=== PATIENT | female | born 1950 | race Caucasian/White ===

== ENCOUNTER 2019-05-08 12:04 | Day surgery (SDC) | payer OTHER ==
[~2019-05-08] VITALS: Ht 157.5 cm; Wt 59.5 kg
[~2019-05-08 12:04] MED LIST: AMIT10TA PO; AMIT25TA PO; BACT800T5 PO; CILO100T PO; FEBU40TA4 PO; INDA25TAB PO; LR 1,000 ML IV ONE; NEXI40CA PO; SULF400T14 PO; [UNRECOGNIZED DRUG - CODE] PO; ceFAZolin SOD 2 GM in IV 1 EA IV ONE
[2019-05-08] MEDS ORDERED: ROCURONIUM BROMIDE 50 MG/5 ML VIAL As Ordered ONE (14:40)
[2019-05-08] MEDS ORDERED: ONDANSETRON 4MG/2ML VIAL (J2405) As Ordered ONE (14:40)
[2019-05-08] MEDS ORDERED: KETOROLAC 60 MG/2 ML VIAL (J1885) As Ordered ONE (14:40)
[2019-05-08] MEDS ORDERED: PROPOFOL 200 MG/20 ML VIAL As Ordered ONE (14:40)
[2019-05-08] MEDS ORDERED: dexameTHASONE 4 MG/ML 1ML VIAL (J1100) As Ordered ONE (14:40)
[2019-05-08] MEDS ORDERED: LIDOCAINE 2% INJ 100 MG/5 ML SDV (FOR ANES.) As Ordered ONE ×2 (14:40→16:42)
[2019-05-08] MEDS ORDERED: fentaNYL 100 MCG/2 ML INJECTION (J3010) As Ordered ONE ×3 (16:42→19:05)
[2019-05-08] MEDS ORDERED: MIDAZOLAM INJ 2 MG/2 ML VIAL (J2250) As Ordered ONE (16:42)
[2019-05-08] MEDS ORDERED: CONRAY-60 60% 50ML VIAL (Q9961) As Ordered ONE ×2 (17:10→17:36)
[2019-05-08] MEDS ORDERED: PERCOCET 5MG/325MG TAB PO PRN ×2 (20:30)
[2019-05-08] MEDS ORDERED: METOCLOPRAMIDE INJ 10MG/2ML VIAL (J2765) IV PRN (20:30)
[2019-05-08] MEDS ORDERED: ONDANSETRON 4MG/2ML VIAL (J2405) IV PRN (20:30)
[2019-05-08] MEDS ORDERED: fentaNYL 100 MCG/2 ML INJECTION (J3010) IV PRN (20:30)
[2019-05-08] MEDS ORDERED: LR 1,000 ML IV SCH (20:30)
[2019-05-08 21:35] VITALS: BP 144/70
--- NOTE | 2019-05-08 23:53 | RO ---
DATE OF PROCEDURE: 05/08/2019 PREPROCEDURE DIAGNOSIS: Bilateral kidney and ureteral stones. POSTPROCEDURE DIAGNOSIS: Bilateral kidney and ureteral stones. PROCEDURE: Cystoscopy, bilateral ureteroscopy with laser lithotripsy and basket extraction of stones, bilateral retrograde pyelograms with intraoperative interpretation of images, right ureteral stent exchange, left ureteral stent placement. SURGEON: Mayo Shaikh MD DIRECTOR TELEVISION NEWS: None. ANESTHESIA: General. OPERATIVE INDICATIONS: This is a 68-year-old female who had a right ureteral stent placed a few weeks ago for obstructing distal right ureteral stones. Also, of note, on the CAT scan, she had left-sided kidney stones measuring up to 3 cm in size, as well as stones in her left ureter measuring up to 1 cm in size. She was brought to the operating room today for treatment of her kidney stones. DESCRIPTION OF PROCEDURE: The patient was brought to the operating room and general anesthesia was induced. Prophylactic antibiotics were infused. She was then placed in the dorsal lithotomy position and prepped and draped in the usual sterile fashion. A rigid cystoscope was inserted into the urethral meatus and advanced into the bladder. Once inside the bladder, guidewire was advanced up the right collecting system alongside the previously placed stent. The right ureteral stent was then grasped and withdrawn intact. I then went up the right collecting system with a short semi-rigid ureteroscope and within the distal ureter, there were several stones seen, each measuring up to 8-9 mm in size. Due to her right ureter being dilated, I was able to grasp all of these stones and remove them with a basket. I then examined the more proximal ureter and no additional stones were seen. A ureteral access sheath was then advanced up into the right collecting system. I then went up the access sheath with a flexible ureteroscope, and of note, the right kidney was severely dilated. No large stones were seen inside the right kidney. There were only very tiny stone fragments. A retrograde pyelogram was then performed and was notable for severe right hydronephrosis, with no extravasation. I then removed the ureteroscope along with the access sheath and no additional stones remained inside the ureter. I utilized the previously placed wire to advance a 7-Lithuanian x 22-32 cm JJ ureteral stent into the right collecting system. The wire was removed, and there were adequate curls of the stent in the right renal pelvis and in the bladder. At this point, I advanced a wire up the left collecting system. I went up the left collecting system with a short semi-rigid ureteroscope, and within the distal ureter, there were three stones seen, each measuring around 1 cm in size. These stones were fragmented into smaller pieces using an Excalibur laser fiber. The stone fragments were then removed from the left ureter with a basket. I then examined the more proximal ureter, and no additional stones were seen within the proximal ureter. At this point, I advanced a ureteral access sheath into the left collecting system. I went up the access sheath with a flexible ureteroscope, and within the left kidney, there were several stones seen measuring up to 3 cm in size. One of these stones was then fragmented into smaller pieces. This stone appeared to measure around 1-1/2 to 2 cm in size. At this point, I used a basket to try to retrieve the majority of any large stone fragments from that stone. Of note, at this point, I had already spent approximately 2-1/2 hours removing the patient's kidney stones. She, of note, still had at least three stones remaining, which were over 1-1/2 to 2 cm in size. Given that it would probably take another 2-1/2 to 3 hours to remove the remainder of the stones, the decision was made to stop at this point with a plan to bring her back for another ureteroscopy in a few weeks to finish the job. This likelihood of this was discussed with the patient preoperatively. At this point, a retrograde pyelogram was performed and was notable for moderate left hydronephrosis with no extravasation. I then withdrew the ureteroscope along with the access sheath and no remaining stones were seen within the ureter. I then utilized the wire to advance a 7-Lithuanian x 22-32 cm JJ ureteral stent into the left collecting system. The wire was removed, and there were adequate curls of the stent in the left renal pelvis and in the bladder. At this point, the bladder was emptied of all fluids, and this marked the conclusion of the procedure. The patient was then taken out of the dorsal lithotomy position, awakened from anesthesia and transported to the recovery room in stable condition. Estimated blood loss: 5 mL. Complications: None. Specimens: Kidney stone fragments. PLAN: The patient will be brought back to the operating room in a few weeks. She does not seem interested in having a percutaneous nephrolithotomy. Therefore, I will bring her back for a left-sided ureteroscopy with laser lithotripsy to clear the remainder of her stone in her left kidney. LEO
--- NOTE | 2019-05-09 07:34 | REP ---
C-ARM VIEWS DURING URETERAL STENT PLACEMENT BILATERALLY: Four C-arm views are performed. Contrast material is injected partially opacifying bilateral pelvocaliceal systems. Right Pelvocaliceal system appear moderately dilated. There are multiple left renal calculi are again seen. These were present on the prior exam of 03/18/2019. There are bilateral ureteral stents placed. The proximal end of each stent is in the renal pelvis in the distal ends in the urinary bladder. 27 seconds of fluoroscopy time utilized. Electronically Signed by Luis Armando Liu MD 05/09/2019 12:54 P
== END 2019-05-08 21:54 | disposition home or self-care (01) ==
LOC: M SDC 12:04
PROVIDERS: ATTEND Urology
DX: N20.0 Calculus of kidney (principal); N20.1 Calculus of ureter; E78.5 Hyperlipidemia, unspecified; K21.9 Gastro-esophageal reflux disease without esophagitis; I73.00 Raynaud's syndrome without gangrene; F17.218 Nicotine dependence, cigarettes, with other nicotine-induced disorders; Z88.2 Allergy status to sulfonamides; Z88.8 Allergy status to other drugs, medicaments and biological substances; Z79.899 Other long term (current) drug therapy
CPT/HCPCS: 52356; 74420; 82360; 88300; C1769; C1894; J0690; J1100; J2250; J2405; J3010; Q9961

== ENCOUNTER 2019-06-05 10:36 | Day surgery (SDC) | payer OTHER ==
[~2019-06-05] VITALS: Ht 157.5 cm; Wt 58.4 kg
[~2019-06-05 10:36] MED LIST changes: +FLOM0.4C39 PO; +LIDOCAINE 2% INJ 100 MG/5 ML SDV (FOR ANES.) As Ordered ONE; +MIDAZOLAM INJ 2 MG/2 ML VIAL (J2250) As Ordered ONE; +ONDANSETRON 4MG/2ML VIAL (J2405) As Ordered ONE; +dexameTHASONE 4 MG/ML 1ML VIAL (J1100) As Ordered ONE; +fentaNYL 100 MCG/2 ML INJECTION (J3010) As Ordered ONE; +propofoL 200 MG/20 ML VIAL As Ordered ONE
[2019-06-05] MEDS ORDERED: OXYB5TAB10 PO (11:01)
[2019-06-05] MEDS ORDERED: CONRAY-60 60% 50ML VIAL (Q9961) As Ordered ONE (13:10)
[2019-06-05] MEDS ORDERED: dexameTHASONE 4 MG/ML 1ML VIAL (J1100) As Ordered ONE (13:45)
[2019-06-05] MEDS ORDERED: METOCLOPRAMIDE INJ 10MG/2ML VIAL (J2765) As Ordered ONE (14:18)
[2019-06-05] MEDS ORDERED: PHENYLephrine HCL 500 MCG/5 ML (100MCG/ML) SYRINGE (J2370) As Ordered ONE (14:20)
[2019-06-05] MEDS ORDERED: fentaNYL 100 MCG/2 ML INJECTION (J3010) As Ordered ONE (14:38)
[2019-06-05] MEDS ORDERED: SEVOFLURANE INHAL SOLN 250 ML BTL As Ordered ONE (14:42)
[2019-06-05] MEDS ORDERED: ACETAMINOPHEN 1000MG 100ML IV BTL (OFIRMEV) (J0131 PER 10MG) As Ordered ONE (14:47)
[2019-06-05] MEDS ORDERED: ESMOLOL INJ 100MG/10ML VIAL As Ordered ONE (15:11)
--- NOTE | 2019-06-05 16:18 | RO ---
DATE OF PROCEDURE: 06/05/2019 PREPROCEDURE DIAGNOSIS: Kidney stones. POSTPROCEDURE DIAGNOSIS: Kidney stones. PROCEDURE: Cystoscopy, left ureteroscopy with laser lithotripsy and basket extraction of stones, left retrograde pyelogram with intraoperative interpretation of images, left ureteral stent exchange, right ureteral stent removal. SURGEON: Dr. Mayo Shaikh HEALTH AND SOCIAL CARE TEACHER: None. ANESTHESIA: General. OPERATIVE INDICATIONS: This is a 68-year-old female who was originally found to have kidney and ureteral stones approximately 1-2 months ago. She was brought to the operating room a few weeks ago for treatment of stones and at that time the stones on the right side were cleared out. She is brought to the operating room today to treat the remainder of the stones on the left and remove the right ureteral stent. DESCRIPTION OF PROCEDURE: The patient was brought to the operating room and general anesthesia was induced. Prophylactic antibiotics were infused. She was then placed in dorsal lithotomy position, prepped and draped in the usual sterile fashion. At this point, a fluoroscopic image was obtained and it confirms there were no residual stones on the right side. There were still several large stones inside the left kidney. At this point, a rigid cystoscope was inserted into the urethral meatus and advanced to the bladder. The right ureteral stent was then grasped and removed from the bladder intact. At this point, I advanced the guidewire up the left collecting system and then removed the left ureteral stent. I advanced the ureteral access sheath over the wire and into the left collecting system. I went up the access sheath with a flexible ureteroscope and of note in the left kidney there were at least four stones seen that were over a centimeter in size. At this point, an Excalibur laser fiber was utilized to fragment the stones into the smaller pieces. A lot of the stone fragments were removed with a basket. Any remaining stones inside the left kidney were broken down into dust so the patient should be able to pass through. Once satisfied that there were only very tiny stone fragments remaining, a left retrograde pyelogram was performed. It was notable for moderate left hydronephrosis. There was no extravasation. I then withdrew the ureteroscope along with access sheath and no additional stones were seen within the ureter. I then utilized the wire to advance a 7-Bulgarian x 22 cm black silicone stent into the left collecting system. The wire was removed and there were adequate curls of the stent in the left renal pelvis and in the bladder. The bladder was emptied of all fluids and this marked the conclusion of the procedure. The patient was then taken out of the dorsal lithotomy position, awakened from anesthesia and transported to the recovery room in stable condition. Estimated blood loss: 5 mL. Complications: None. Specimens: Kidney stone fragments. Plan: The patient will followup in the clinic in approximately 3-4 weeks for stent removal. I will get a KUB prior to removing the stent to ensure that there were no residual fragments inside the ureter. MTDD
[2019-06-05] MEDS ORDERED: PERCOCET 5MG/325MG TAB PO PRN (16:45)
[2019-06-05] MEDS ORDERED: LR 1,000 ML IV SCH (16:45)
[2019-06-05] MEDS ORDERED: HYDROMORPHONE HCL 0.5 MG/ 0.5 ML SYRINGE (J1170 PER 1) IV PRN (16:45)
[2019-06-05] MEDS ORDERED: oxyCODONE 5MG TAB PO PRN (16:45)
[2019-06-05] MEDS ORDERED: fentaNYL 100 MCG/2 ML INJECTION (J3010) IV PRN (16:45)
[2019-06-05] MEDS ORDERED: ONDANSETRON 4MG/2ML VIAL (J2405) IV PRN (16:45)
--- NOTE | 2019-06-05 17:29 | REP ---
Retrograde pyelogram: Three views. History: Cystoscopy. 41 seconds of fluoroscopy time is reported. Findings: A sequence of three last image hold fluoroscopically obtained spot radiographs of the abdomen document ureteral cannulation, contrast injection, and stenting. This appears to be left-sided. No laterality markers are visible. Electronically Signed by Adams Cano MD 06/05/2019 06:11 P
[2019-06-05 17:55] VITALS: BP 109/59
== END 2019-06-05 18:00 | disposition home or self-care (01) ==
LOC: M SDC 10:36
PROVIDERS: ATTEND Urology
DX: N20.0 Calculus of kidney (principal); E78.5 Hyperlipidemia, unspecified; K21.9 Gastro-esophageal reflux disease without esophagitis; D64.9 Anemia, unspecified; Z88.2 Allergy status to sulfonamides; Z88.8 Allergy status to other drugs, medicaments and biological substances; F17.218 Nicotine dependence, cigarettes, with other nicotine-induced disorders
CPT/HCPCS: 52356; 74420; 82360; 88300; C1769; C1894; C2617; J0131; J0690; J1100; J2250; J2370; J2405; J2765; J3010; Q9961

== ENCOUNTER → 2020-01-04 | Outpatient (REF) | payer OTHER ==
[~2020-01-04] MED LIST changes: -LIDOCAINE 2% INJ 100 MG/5 ML SDV (FOR ANES.) As Ordered ONE; -LR 1,000 ML IV ONE; -MIDAZOLAM INJ 2 MG/2 ML VIAL (J2250) As Ordered ONE; -ONDANSETRON 4MG/2ML VIAL (J2405) As Ordered ONE; +OXYB5TAB10 PO; -ceFAZolin SOD 2 GM in IV 1 EA IV ONE; -dexameTHASONE 4 MG/ML 1ML VIAL (J1100) As Ordered ONE; -fentaNYL 100 MCG/2 ML INJECTION (J3010) As Ordered ONE; -propofoL 200 MG/20 ML VIAL As Ordered ONE
[2020-01-04 17:15] LABS: APPEARANCE, URINE CLEAR (CLEAR); BACTERIA, URINE AUTO 1+ (NEGATIVE); BILIRUBIN, URINE AUTO NEGATIVE (NEGATIVE); BLOOD, URINE BLOOD NEGATIVE (NEGATIVE); COLOR, URINE STRAW (YELLOW); GLUCOSE, URINE (UA) AUTO NEGATIVE (NEGATIVE); KETONE, URINE AUTO NEGATIVE (NEGATIVE); LEUKOCYTE ESTERASE, URINE AUTO 2+ (NEGATIVE); MUCUS, URINE SMALL (NEGATIVE); NITRITE, URINE AUTO NEGATIVE (NEGATIVE); PROTEIN, URINE AUTO NEGATIVE (NEGATIVE); RBC, URINE AUTO 1 /HPF (0-3); SPECIFIC GRAVITY URINE AUTO 1.005 (1.002-1.035); SQUAMOUS EPITHELIAL CELL UR AU 2 /HPF (0-6); UROBILINOGEN, URINE AUTO 0.2 mg/dL (0.0-2.0); WBC, URINE AUTO 19 /HPF (0-3)
== END ==
LOC: M SMT 16:54
PROVIDERS: ATTEND Nurse Practitioner Family
DX: N20.0 Calculus of kidney (principal)

== ENCOUNTER → 2020-01-04 | Outpatient (CLI) | payer OTHER ==
--- NOTE | 2020-01-30 15:08 | REPPI ---
ABDOMINAL RADIOGRAPH: CLINICAL: Kidney stones. TECHNIQUE: Single supine view of the abdomen and pelvis. FINDINGS: Multiple bilateral intrarenal calculi are suggested (left greater than right). Further evaluation is limited due to overlying bowel gas and constipation. Skeletal structures demonstrate age related degenerative changes. IMPRESSION: Bilateral intrarenal calculi (left greater than right) suggested. MTDD
== END ==
LOC: M PLAIMG 15:22
PROVIDERS: ATTEND Nurse Practitioner Family
DX: N20.0 Calculus of kidney (principal)

== ENCOUNTER 2020-07-14 05:47 | Observation (INO) | payer OTHER ==
[~2020-07-14 05:47] MED LIST changes: -AMIT10TA PO; +AMIT10TA7 PO; -AMIT25TA PO; +AMIT25TA17 PO
[2020-07-14 08:40] VITALS: BP 98/60
[2020-07-14] MEDS ORDERED: ACETAMINOPHEN TAB 650MG DOSE (2X325MG) PO PRN (09:00)
--- NOTE | 2020-07-14 09:53 | REP ---
INDICATION: Pre-Op COMPARISON: None. TECHNIQUE: Portable AP view of the chest FINDINGS: The mediastinum and cardiac silhouette are within normal limits for portable technique. The lung gar are clear without acute consolidation, effusion, or pneumothorax. Skeletal structures are intact. IMPRESSION: No acute cardiopulmonary process appreciated. <Electronically signed by Igor Thomas > 07/14/20 0949
[2020-07-14] MEDS ORDERED: NS 1,000 ML IV SCH (10:00)
[2020-07-14] MEDS ORDERED: cefTRIAXone SOD 1 GM in D5W MINI-BAG PLUS 50 ML IV SCH (10:00)
[2020-07-14 10:02] LABS: BASO # 0.1 10^3/uL (0.0-0.2); BASO % 0.6 % (0.0-1.0); EOS # 0.3 10^3/uL (0.0-0.5); EOS % 3.1 % (0.0-3.0); HEMOGLOBIN 13.2 g/dl (12.0-15.5); LYMPH # 1.9 10^3/uL (1.5-5.0); LYMPH % 19.3 % (24.0-44.0); MEAN CORPUSCULAR HEMOGLOBIN 33.2 pg (27.0-33.0); MEAN CORPUSCULAR HGB CONC 33.8 g/dl (32.0-36.5); MONO # 0.7 10^3/uL (0.0-0.8); MONO % 6.7 % (2.0-8.0); NEUTROPHILS # 6.9 10^3/uL (1.5-8.5); NEUTROPHILS % 69.9 % (36.0-66.0); PLATELET COUNT, AUTOMATED 152 10^3/uL (150-450); RED BLOOD COUNT 3.98 10^6/uL (4.00-5.40); WHITE BLOOD COUNT 9.9 10^3/uL (4.0-10.0)
--- NOTE | 2020-07-14 10:03 | SMCUROLCON ---
Urology Consultation General Date of Consultation 07/14/20 Reason For Consultation This patient is seen for Severe Hydronephrosis,Nephrolitiasis. History of Present Illness The patient is a [69]-year-old [woman] with a past medical history for [kidney stones] who went to her local ER with right flank pain. She was found to have a 1 cm stone obstructing her right ureter and smaller stones bilaterally. She has a 32 year h/o kidney stones treated with a variety of procedures through the years. At [facility], she denies any fever or chills but had more pain than she could tolerate. . Medications Current Medications Current Medications Medications (Trade) Dose Ordered Sig/Jordan Route PRN Reason Start Time Stop Time Status Last Admin Dose Admin Acetaminophen (Tylenol Tab) 650 mg Q4H PRN PO PAIN OR FEVER 07/14/20 09:00 Ceftriaxone Sodium 1 gm/ Dextrose 50 ml @ 100 mls/hr Q24H IV 07/14/20 10:00 Cancel Ceftriaxone Sodium 1 gm/ Dextrose 50 ml @ 100 mls/hr Q24H IV 07/15/20 05:00 Sodium Chloride 1,000 ml @ 100 mls/hr Q10H IV 07/14/20 10:00 07/14/20 09:32 Allergies Allergies: Coded Allergies: Giashcx-Lgn-Lho Reductase Inhibitor (Verified Allergy, Severe, 05/31/19) Sulfa (Sulfonamide Antibiotics) (Verified Allergy, Severe, 05/31/19) albuterol (Verified Adverse Reaction, Mild, tremors, 05/31/19) sulfamethoxazole (Verified Adverse Reaction, Unknown, LETHARGY, 05/31/19) trimethoprim (Verified Adverse Reaction, Unknown, LETHARGY, 05/31/19) Physical Examination Chest Exam: Clear to auscultation Heart Exam: Rate Normal, Regular Rhythm Abdomen Exam: Normal Bowel Sounds, Soft, Other (mild right sided tenderness without surgical signs; no CVAT) Extremity Exam: Clubbing, Cyanosis (no palpable cords, clubbing or edema.) Vital Signs/I&O Vital Signs Date Time Temp Pulse Resp B/P (MAP) Pulse Ox O2 Delivery O2 Flow Rate FiO2 07/14/20 08:40 96.9 85 16 98/60 (73) 92 Room Air Laboratory Data 24H Labs Laboratory Tests 2 07/14/20 08:40: 07/14/20 09:13: Urine Color YELLOW, Urine Appearance CLOUDYH, Urine pH 6.0, Urine Specific Fowler 1.012, Urine Protein 1+H, Urine Glucose (UA) NEGATIVE, Urine Ketones NEGATIVE, Urine Blood 2+H, Urine Nitrite NEGATIVE, Urine Bilirubin NEGATIVE, Urine Urobilinogen 0.2, Urine Leukocyte Esterase 3+H, Urine WBC (Auto) TNTCH, Urine RBC (Auto) 102H, Urine Hyaline Casts (Auto) 0, Urine Bacteria (Auto) 1+H, Urine Squamous Epithelial Cells 4, Urine Mucus (Auto) SMALL, Urine Sperm (Auto) 07/14/20 09:45: CBC/BMP Microbiology Microbiology 07/14/20 Blood Culture, Received Pending 07/14/20 Urine Culture, Received Pending Assessment Right ureteral obstruction due to large right mid ureteral stone Plan I plan of decompression in the OR today with stent placement. Risks of this have been discussed with her and she completely understands. SERA METZ MD Jul 14, 2020 10:03
[2020-07-14 10:11] LABS: INR 0.99; PROTHROMBIN TIME 13.3 SECONDS (12.5-14.3)
[2020-07-14 10:32] LABS: ALBUMIN 3.2 GM/DL (3.2-5.2); BILIRUBIN,TOTAL 0.4 MG/DL (0.2-1.0); CALCIUM LEVEL 8.5 MG/DL (8.8-10.2); CREATININE FOR GFR 1.17 MG/DL (0.55-1.30); GLOMERULAR FILTRATION RATE 48.5 (>39); POTASSIUM SERUM 3.4 MEQ/L (3.5-5.1); TOTAL PROTEIN 5.9 GM/DL (6.4-8.2)
[2020-07-14] MEDS ORDERED: POTASOL PO (10:48)
[2020-07-14] MEDS ORDERED: POTASSIUM CHLORIDE 10 MEQ SR TABLET PO ONE ×2 (11:20→15:00)
[2020-07-14] MEDS ORDERED: CONRAY-60 60% 50ML VIAL (Q9961) As Ordered ONE (11:38)
[2020-07-14] MEDS ORDERED: LIDOCAINE 2% 100MG/5ML SDV (FOR ANES.) As Ordered ONE (11:45)
[2020-07-14] MEDS ORDERED: propofoL 200 MG/20 ML VIAL As Ordered ONE (11:45)
[2020-07-14] MEDS ORDERED: fentaNYL 100 MCG/2 ML INJECTION (J3010) As Ordered ONE (11:46)
[2020-07-14] MEDS ORDERED: dexameTHASONE 4 MG/ML 1ML VIAL (J1100 PER 1MG) As Ordered ONE (11:46)
[2020-07-14] MEDS ORDERED: MIDAZOLAM INJ 2MG/2ML VIAL (J2250 PER 1MG) As Ordered ONE (11:46)
[2020-07-14] MEDS ORDERED: ONDANSETRON 4MG/2ML VIAL As Ordered ONE (11:46)
[2020-07-14 12:00] VITALS: BP 106/49
[2020-07-14] MEDS ORDERED: VASOPRESSIN INJ 20 UNITS/ML VIAL As Ordered ONE (12:28)
[2020-07-14] MEDS ORDERED: PHENYLephrine 500MCG 5ML (100MCG/ML) SYRINGE As Ordered ONE (12:31)
[2020-07-14] MEDS ORDERED: ePHEDrine SULFATE 25 MG/5 ML(5MG/ML) SYRINGE As Ordered ONE (12:31)
[2020-07-14] MEDS ORDERED: fentaNYL 100 MCG/2 ML INJECTION (J3010) IV PRN (12:55)
[2020-07-14] MEDS ORDERED: METOCLOPRAMIDE INJ 10MG/2ML VIAL (J2765 PER 1) IV PRN (12:55)
[2020-07-14] MEDS ORDERED: PERCOCET 5MG/325MG TAB PO PRN (12:55)
[2020-07-14] MEDS ORDERED: LR 1,000 ML IV SCH (12:55)
[2020-07-14] MEDS ORDERED: ONDANSETRON 4MG/2ML VIAL IV PRN (12:55)
--- NOTE | 2020-07-14 13:00 | REP ---
INDICATION: CYSTOSCOPY, RIGHT RETROGRADE, RIGHT STENT PLACEMENT. COMPARISON: None. TECHNIQUE: Intraoperative fluoroscopic imaging. FINDINGS: Images demonstrate the patient to be status post right ureteral stent placement. Total fluoroscopic time 13 seconds. IMPRESSION: Status post right ureteral stent placement. <Electronically signed by Igor Thomas > 07/14/20 [id number]
--- NOTE | 2020-07-14 13:06 | ECGEPIP ---
[facility] Test Date: 2020-07-14 Pat Name: EVERETTE KENDRICK Department: Room: [place] [address] Gender: Female Instruction Librarian: LINNETTE : 1950 Requested By: TERE CASTANON Order Number: [id number] Reading MD: Blossom Aly Measurements Intervals [place] Rate: 79 P: 37 AK: 150 QRS: -4 QRSD: 86 T: 63 QT: 364 QTc: 417 Interpretive Statements Normal sinus rhythm LOW VOLTAGE LIMB LEADS NO PRIOR Electronically Signed on 07-14-2020 13:06:31 EDT by Blossom Aly
--- NOTE | 2020-07-14 13:08 | HPEPDOC ---
[facility] Medical History & Physical Date of Admission Jul 14, 2020 Date of Service: Jul 14, 2020 History and Physical Chief complaint: Who presented to [facility] as a transfer from [facility] for right ureteral obstructing stone History of present illness: She is a 69-year-old female who presented from [facility] because of an obstructive stone in her right ureter. Patient reported that at 4PM on Wednesday, she was experiencing right-sided kidney pain that spread down to her bladder. Patient reported that the pain currently is a 1/10. However, at its peak was a 10/10. Patient describes it as a sharp stabbing pain without any alleviating or aggravating factors. She denies any burning with urination. Denies any recent fevers or chills. Patient denies any nausea, vomiting, chest pain, shortness breath, palpitations, cough. Denies any other abdominal pain. Reports her appetite before this was generally fine. Patient reports her last meal was yesterday at 9:30 PM. Patient has received a COVID19 vaccine, first dose on 06/29. She is scheduled for her next dose on Wednesday, 07/20. 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 Raynaud Depression DLP Past Surgical History: Right ovarian resection, bladder suspension surgery, appendectomy, and right inguinal hernia repair simultaneously Allergies: See below Medications: See below Family History: - Mother with history of lung cancer Social History: - Denies the use of alcohol, tobacco or illicit drugs - Denies recent travel or sick contacts - Lives with - Occupation Review of Systems: 10 point review of systems complete, all negative otherwise stated in HPI Physical exam: - Vitals: BP [98/60], HR [85], RR [16], Sat [92%RA], Temp [96.9F] - General: Lying in bed, Speaking in full sentences, AAOx3 - HEENT: NC, AT, PERRLA - CVS: RRR, +S1S2 - Lungs: Fair air entry bilaterally, No appreciable wheezing / rales / rhonchi - Abdomen: Soft, Non-distended, some suprapubic tenderness. Right CVA tenderness - Extremities: No lower extremity edema, No calf tenderness - Neuro: No focal motor or sensory deficit - Skin: No visible rashes Labs: See below Imaging: See below EKG: See below Assessment and Plan: R obstructive ureteral stone with hydronephrosis - Presented to [facility] as a transfer from [facility] - Has been complaining of right flank pain since Wednesday evening - Currently does not appear to have any signs of infection - Hemodynamically stable and afebrile - No leukocytosis, no renal function abnormalities - Discussed with and consulted urology will be taken to or today for stenting - Patient will remain nothing by mouth status - Will continue with IV fluid hydration and ceftriaxone Hypokalemia - Will supplement HTN - BP well controlled currently - Will hold Indapamide Gout - c/w Febuxostat Depression - c/w Amitriptyline GERD - Will c/w PPI DVT prophylaxis - Will start TEDs/Sequentials Vital Signs Vital Signs Date Time Temp Pulse Resp B/P (MAP) Pulse Ox O2 Delivery O2 Flow Rate FiO2 07/14/20 12:59 84 16 103/55 (71) 100 Non-Rebreather 10 07/14/20 12:39 97 Laboratory Data Labs 24H Laboratory Tests 2 07/14/20 08:40: Coronavirus (COVID-19)(PCR) NEGATIVE 07/14/20 09:13: Urine Color YELLOW, Urine Appearance CLOUDYH, Urine pH 6.0, Urine Specific [place] 1.012, Urine Protein 1+H, Urine Glucose (UA) NEGATIVE, Urine Ketones NEGATIVE, Urine Blood 2+H, Urine Nitrite NEGATIVE, Urine Bilirubin NEGATIVE, Urine Urobilinogen 0.2, Urine Leukocyte Esterase 3+H, Urine WBC (Auto) TNTCH, Ur ine RBC (Auto) 102H, Urine Hyaline Casts (Auto) 0, Urine Bacteria (Auto) 1+H, Urine Squamous Epithelial Cells 4, Urine Mucus (Auto) SMALL, Urine Sperm (Auto) , Methicillin-Resist S.aureus DNA PCR NOT DETECTED 07/14/20 09:45: Immature Granulocyte % (Auto) 0.4, Neutrophils (%) (Auto) 69.9H, Lymphocytes (%) (Auto) 19.3L, Monocytes (%) (Auto) 6.7, Eosinophils (%) (Auto) 3.1H, Basophils (%) (Auto) 0.6, Neutrophils # (Auto) 6.9, Lymphocytes # (Auto) 1.9, Monocytes # (Auto) 0.7, Eosinophils # (Auto) 0.3, Basophils # (Auto) 0.1, Nucleated Red Blood Cells % (auto) 0.0, Prothrombin Time 13.3, Prothromb Time International Ratio 0.99, Anion Gap 4L, Glomerular Filtration Rate 48.5, Lactic Acid Level 2.0, Calcium Level 8.5L, Total Bilirubin 0.4, Aspartate Amino Transf (AST/SGOT) 15, Alanine Aminotransferase (ALT/SGPT) 22, Alkaline Phosphatase 97, Total Protein 5.9L, Albumin 3.2, Albumin/Globulin Ratio 1.2, Procalcitonin 0.07 CBC/BMP Laboratory Tests 07/14/20 09:45 Microbiology Microbiology 07/14/20 Blood Culture, Received Pending 07/14/20 Blood Culture, Received Pending 07/14/20 Urine Culture, Received Pending Home Medications Scheduled Amitriptyline HCl (Amitriptyline HCl) 10 Mg Tablet, 10 MG PO QHS Amitriptyline HCl (Amitriptyline HCl) 25 Mg Tablet, 25 MG PO QHS Esomeprazole Magnesium (Nexium) 40 Mg Capsule.dr, 40 MG PO BID Febuxostat (Uloric) 40 Mg Tablet, 40 MG PO DAILY Indapamide (Indapamide) 2.5 Mg Tablet, 2.5 MG PO DAILY Potassium Citrate/Citric Acid (Potassium Cit-Citric Acid Soln) 473 Ml Solution, 5 ML PO TID Allergies Coded Allergies: Gmnclbl-Nlz-Xzu Reductase Inhibitor (Verified Allergy, Severe, 05/31/19) Sulfa (Sulfonamide Antibiotics) (Verified Allergy, Severe, 05/31/19) albuterol (Verified Adverse Reaction, Mild, tremors, 05/31/19) sulfamethoxazole (Verified Adverse Reaction, Unknown, LETHARGY, 05/31/19) trimethoprim (Verified Adverse Reaction, Unknown, LETHARGY, 05/31/19) TERE CASTANON MD Jul 14, 2020 13:08
[2020-07-14 13:45] VITALS: BP 99/46
[2020-07-14 14:15] VITALS: BP 90/51
[2020-07-14] MEDS ORDERED: INDA25TAB PO (14:36)
[2020-07-14] MEDS ORDERED: LEVO250T12 PO (14:36)
--- NOTE | 2020-07-14 15:33 | DS.PDOC ---
Discharge Summary General Date of Admission Jul 14, 2020 at 08:40 Date of Discharge 07/14/2020 Discharge Summary PROCEDURES PERFORMED DURING STAY: R sided ureteral stent placement with Dr. Garcia on 07/13/2020 ADMITTING DIAGNOSES / DISCHARGE DIAGNOSES: R obstructive ureteral stone with hydronephrosis Hypokalemia HTN Gout Depression GERD DVT prophylaxis COMPLICATIONS/CHIEF COMPLAINT: Nephrolithiasis HISTORY OF PRESENT ILLNESS: She is a 69-year-old female who presented from [facility] because of an obstructive stone in her right ureter. Patient reported that at 4PM on Wednesday, she was experiencing right-sided kidney pain that spread down to her bladder. Patient reported that the pain currently is a 1/10. However, at its peak was a 10/10. Patient describes it as a sharp stabbing pain without any alleviating or aggravating factors. She denies any burning with urination. Denies any recent fevers or chills. Patient denies any nausea, vomiting, chest pain, shortness breath, palpitations, cough. Denies any other abdominal pain. Reports her appetite before this was generally fine. Patient reports her last meal was yesterday at 9:30 PM. Patient has received a COVID19 vaccine, first dose on 06/29. She is scheduled for her next dose on Wednesday, 07/20. HOSPITAL COURSE: R obstructive ureteral stone with hydronephrosis - Presented to [facility] as a transfer from [facility] - Currently reports resolution of R flank pain after stent placement - Hemodynamically stable and afebrile - No leukocytosis, No lactic acidosis, Normal renal function abnormalities - s/p R ureteral stent placement with Dr. Garcia on 07/13/2020 - Urology on consultation; cleared for DC home - Will c/w Levofloxacin on discharge for completion of course - Will have outpatient follow-up with primary care provider, and urology within the next 7 days Hypokalemia - s/p supplementation HTN - BP well controlled currently - Will hold Indapamide; will resume on Wednesday Gout - c/w Febuxostat Depression - c/w Amitriptyline GERD - c/w PPI DVT prophylaxis - c/w TEDs/Sequentials DISCHARGE MEDICATIONS: Please see below. ALLERGIES: Please see below. PHYSICAL EXAMINATION ON DISCHARGE: Vitals (See below) General: Sitting up in bed eating lunch, appears comfortable - reports resolution of her pain, AAOx3 HEENT: NC, AT CVS: +S1S2 Lungs: Fair air entry b/l, -w/r/r Abdomen: Soft, ND, NT Extremities: No evidence of edema, - Calf tenderness LABORATORY DATA: Please see below. IMAGING: CXR 07/14: No acute cardiopulmonary process appreciated. ACTIVITY: [As tolerated]. DISCHARGE PLAN: Home DISPOSITION: Follow-up with regular provider, and urology within the next 7 days Remain compliant with treatment plan and medications Return to the ER if you experience any problems DISCHARGE CONDITION: [Stable]. TIME SPENT ON DISCHARGE: 25 minutes. Vital Signs/I&Os Vital Signs Date Time Temp Pulse Resp B/P (MAP) Pulse Ox O2 Delivery O2 Flow Rate FiO2 07/14/20 14:15 96.9 92 16 90/51 (64) 98 Nasal Cannula 2.0 Laboratory Data Labs 24H Laboratory Tests 2 07/14/20 08:40: Coronavirus (COVID-19)(PCR) NEGATIVE 07/14/20 09:13: Urine Color YELLOW, Urine Appearance CLOUDYH, Urine pH 6.0, Urine Specific [place] 1.012, Urine Protein 1+H, Urine Glucose (UA) NEGATIVE, Urine Ketones NEGATIVE, Urine Blood 2+H, Urine Nitrite NEGATIVE, Urine Bilirubin NEGATIVE, Urine Urobilinogen 0.2, Urine Leukocyte Esterase 3+H, Urine WBC (Auto) TNTCH, Urine RBC (Auto) 102H, Urine Hyaline Casts (Auto) 0, Urine Bacteria (Auto) 1+H, Urine Squamous Epithelial Cells 4, Urine Mucus (Auto) SMALL, Urine Sperm (Auto) , Methicillin-Resist S.aureus DNA PCR NOT DETECTED 07/14/20 09:45: Immature Granulocyte % (Auto) 0.4, Neutrophils (%) (Auto) 69.9H, Lymphocytes (%) (Auto) 19.3L, Monocytes (%) (Auto) 6.7, Eosinophils (%) (Auto) 3.1H, Basophils (%) (Auto) 0.6, Neutrophils # (Auto) 6.9, Lymphocytes # (Auto) 1.9, Monocytes # (Auto) 0.7, Eosinophils # (Auto) 0.3, Basophils # (Auto) 0.1, Nucleated Red Blood Cells % (auto) 0.0, Prothrombin Time 13.3, Prothromb Time International Ratio 0.99, Anion Gap 4L, Glomerular Filtration Rate 48.5, Lactic Acid Level 2.0, Calcium Level 8.5L, Total Bilirubin 0.4, Aspartate Amino Transf (AST/SGOT) 15, Alanine Aminotransferase (ALT/SGPT) 22, Alkaline Phosphatase 97, Total Protein 5.9L, Albumin 3.2, Albumin/Globulin Ratio 1.2, Procalcitonin 0.07 CBC/BMP Laboratory Tests 07/14/20 09:45 Microbiology Microbiology 07/14/20 Blood Culture, Received Pending 07/14/20 Blood Culture, Received Pending 07/14/20 Urine Culture, Received Pending Discharge Medications Scheduled Amitriptyline HCl (Amitriptyline HCl) 10 Mg Tablet, 10 MG PO QHS, (Reported) Amitriptyline HCl (Amitriptyline HCl) 25 Mg Tablet, 25 MG PO QHS, (Reported) Esomeprazole Magnesium (Nexium) 40 Mg Capsule.dr, 40 MG PO BID, (Reported) Febuxostat (Uloric) 40 Mg Tablet, 40 MG PO DAILY, (Reported) Indapamide (Indapamide) 2.5 Mg Tablet, 2.5 MG PO DAILY To be resumed on 07/16/2020 Levofloxacin (Levofloxacin) 250 Mg Tablet, 250 MG PO DAILY Potassium Citrate/Citric Acid (Potassium Cit-Citric Acid Soln) 473 Ml Solution, 5 ML PO TID, (Reported) Allergies Coded Allergies: [id number] Reductase Inhibitor (Verified Allergy, Severe, 05/31/19) Sulfa (Sulfonamide Antibiotics) (Verified Allergy, Severe, 05/31/19) albuterol (Verified Adverse Reaction, Mild, tremors, 05/31/19) sulfamethoxazole (Verified Adverse Reaction, Unknown, LETHARGY, 05/31/19) trimethoprim (Verified Adverse Reaction, Unknown, LETHARGY, 05/31/19) TERE CASTANON MD Jul 14, 2020 15:33
--- NOTE | 2020-07-14 20:27 | RO ---
OPERATIVE NOTE PREOPERATIVE DIAGNOSIS: Right mid-ureteral stone. POSTOPERATIVE DIAGNOSIS: Right mid to distal ureteral stones. PROCEDURE: 1. Cystoscopy. 2. Right retrograde pyelogram. 3. Placement of right ureteral stent. SURGEON: Que Garcia M.D. NURSE EMERGENCY ROOM: ANESTHESIA: General anesthesia. ESTIMATED BLOOD LOSS: Minimal. INDICATION: Miss Christine Hensley is a 69-year-old woman with a long history of recurrent nephrolithiasis bilaterally who presented to the emergency room with intractable pain on the right side. She was found by CT scan to have an approximately 1 cm stone in her mid-ureter on that right side with moderate hydronephrosis. She now presents for relief of the obstruction caused by that stone. PROCEDURE IN DETAIL: The patient was brought into the operating room, placed in supine position. After administration of general anesthesia, was placed in dorsal lithotomy position and prepped and draped in the usual sterile fashion. Cystourethroscopy was performed using a 21-Turkmen cystoscope. The anterior and posterior urethra were noted to be normal. The bladder was entered without difficulty. Upon entrance into the bladder, there was some debris and some blood but there was no gross purulence appreciated. There was no significant cystitis cystica or any mucosal lesions identified. Using a 5 Turkmen open-ended catheter, a right retrograde pyelogram was performed. This revealed two calcifications which were previously thought to just be one calcification in the juncture between the mid and distal thirds of the ureter on the right side. There was moderate hydronephrosis noted behind this. Under fluoroscopic guidance, a wire was placed past the stone up into the right renal pelvis. The allowed the stones to separate that they could be better visualized. A 6 Turkmen Cook stent was then placed to set the one coil within the renal pelvis and the subsequent coils were in the bladder. The string was brought to the urethral meatus and then cut at his location. The bladder was drained in its entirety and the patient was returned to a supine position. KUB revealed the stent to be in good anatomical position. Anesthesia was reversed and she was transferred to her bed and taken to the postanesthesia care unit in good condition. Of note, the needle and instrument count were correct at the conclusion of the case.
[2020-07-14] MEDS ORDERED: AMITRIPTYLINE 25MG TABLET PO SCH (21:00)
[2020-07-14] MEDS ORDERED: AMITRIPTYLINE 10MG TABLET PO SCH (21:00)
[2020-07-14] MEDS ORDERED: PANTOPRAZOLE 40MG TAB (PROTONIX) PO SCH (21:00)
[2020-07-15] MEDS ORDERED: cefTRIAXone SOD 1 GM in D5W MINI-BAG PLUS 50 ML IV SCH (05:00)
[2020-07-15] MEDS ORDERED: FEBUXOSTAT 40 MG TABLET (ULORIC) PO SCH (09:00)
== END 2020-07-14 15:25 | disposition home or self-care (01) ==
LOC: M PCU 08:40 → INTOOBSV 08:40
PROVIDERS: ADMIT Family Medicine; ATTEND Family Medicine
DX: N13.2 Hydronephrosis with renal and ureteral calculous obstruction (principal); I10 Essential (primary) hypertension; E87.6 Hypokalemia; M10.9 Gout, unspecified; F32.9 Major depressive disorder, single episode, unspecified; K21.9 Gastro-esophageal reflux disease without esophagitis; F17.218 Nicotine dependence, cigarettes, with other nicotine-induced disorders; Z88.2 Allergy status to sulfonamides; Z88.8 Allergy status to other drugs, medicaments and biological substances
CPT/HCPCS: 36415; 52332; 71045; 74420; 80053; 81001; 83605; 84145; 85025; 85610; 87040; 87086; 87641; 93005; C1769; C2617; J1100; J2250; J2370; J2405; J3010; Q9961; U0002

== ENCOUNTER 2020-08-19 09:08 | Day surgery (SDC) | payer OTHER ==
[~2020-08-19] VITALS: Ht 157.5 cm; Wt 58.5 kg
[~2020-08-19 09:08] MED LIST changes: +KETO10TAB; +LEVO250T12 PO; +LR 1,000 ML IV ONE; +POTASOL PO; +ceFAZolin SOD 2 GM in IV 1 EA IV ONE
[2020-08-19] MEDS ORDERED: propofoL 200 MG/20 ML VIAL As Ordered ONE (10:49)
[2020-08-19] MEDS ORDERED: fentaNYL 100 MCG/2 ML INJECTION (J3010) As Ordered ONE (10:49)
[2020-08-19] MEDS ORDERED: LIDOCAINE 2% 100MG/5ML SDV (FOR ANES.) As Ordered ONE (10:49)
[2020-08-19] MEDS ORDERED: MIDAZOLAM INJ 2MG/2ML VIAL (J2250 PER 1MG) As Ordered ONE (10:49)
[2020-08-19] MEDS ORDERED: dexameTHASONE 4 MG/ML 1ML VIAL (J1100 PER 1MG) As Ordered ONE (10:50)
[2020-08-19] MEDS ORDERED: ONDANSETRON 4MG/2ML VIAL As Ordered ONE (10:50)
[2020-08-19] MEDS ORDERED: CONRAY-60 60% 50ML VIAL (Q9961) As Ordered ONE (12:01)
[2020-08-19] MEDS ORDERED: ACETAMINOPHEN 1000MG 100ML IV BTL (OFIRMEV) (J0131 PER 10MG) As Ordered ONE (13:31)
--- NOTE | 2020-08-19 14:41 | REP ---
INDICATION: RIGHT URETERAL STENT PLACEMENT. COMPARISON: None. TECHNIQUE: Single intraoperative fluoroscopic image from retrograde pyelogram. FINDINGS: Findings suggest moderate hydronephrosis and right ureteral stent placement. Total fluoroscopic time 52 seconds. IMPRESSION: Moderate right hydronephrosis. Ureteral stent placement. <Electronically signed by Igor Thomas > 08/19/20 [id number]
--- NOTE | 2020-08-19 14:49 | ROOPDOC ---
[facility] Report Of Operation Report of Operation DATE OF PROCEDURE: 08/19/20 PREPROCEDURE DIAGNOSES: Right ureteral calculus POSTPROCEDURE DIAGNOSES: Same PROCEDURE: Cystoscopy, right retrograde pyelogram, ureteroscopic laser lithotripsy, stent insertion, x-ray fluoroscopy with interpretation SURGEON: Harish De Luna MD OVERNIGHT CASHIER: None ANESTHESIA: Gen. ESTIMATED BLOOD LOSS: Approximately less than 5 mL. COMPLICATIONS: None REMARKS: The stone is exceedingly large and with the patient's spasms, the case was especially difficult PROCEDURE NOTE: Patient has a large right ureteral calculus with prior stent insertion. She is brought to the operating room today for cystoscopy with ureteroscopic laser lithotripsy DESCRIPTION OF PROCEDURE: The patient was placed on the table in the supine position and given general anesthesia. She was then placed in lithotomy position, prepped with Betadine paint and draped in an aseptic manner. Timeout was then performed. A 22 Bulgarian cystoscope was inserted into meatus and advanced under direct vision of a 30 lens to the bladder. The indwelling catheter was retrieved through the urethral meatus and a wire guide was passed through the lumen up to the renal pelvis. The stent was then removed. A second wire was then passed up to the renal pelvis over which a tunnel dilator was passed up to the mid ureteral stone. A flexible ureteroscope was advanced up to the stone and the stone was then treated with the laser lithotripter. Fragments were removed and the stone was again treated. Along the way, several times the procedure had to be stopped for stone retrieval of larger fragments. Finally, the stone was completely fragmented. Some of the larger fragments are removed and the rest were flushed The stone was seen to be embedded into the ureter. The tunnel dilator and ureteroscope were removed under direct vision and the cystoscope was passed over the safety wire. A 7 Bulgarian double-J stent was then passed over this wire and seen to coil well in the renal pelvis which was still dilated from the beginning of the procedure probably because of a poorly draining stent. The bladder and also curled well in the wires removed and the bladder was drained, cystoscope was removed and the patient was awakened and sent to recovery room in stable condition having tolerated procedure well. The stent will be left in place for 4 weeks before removal. HARISH DE LUNA MD Aug 19, 2020 14:49
[2020-08-19] MEDS ORDERED: METOCLOPRAMIDE INJ 10MG/2ML VIAL (J2765 PER 1) IV PRN (15:15)
[2020-08-19] MEDS ORDERED: LR 1,000 ML IV SCH ×2 (15:15)
[2020-08-19] MEDS ORDERED: ONDANSETRON 4MG/2ML VIAL IV PRN (15:15)
[2020-08-19] MEDS ORDERED: oxyCODONE 5MG TAB PO PRN (15:15)
[2020-08-19] MEDS ORDERED: fentaNYL 100 MCG/2 ML INJECTION (J3010) IV PRN (15:15)
[2020-08-19 16:10] VITALS: BP 110/55
== END 2020-08-19 16:33 | disposition home or self-care (01) ==
LOC: M SDC 09:08
PROVIDERS: ATTEND Urology
DX: N20.0 Calculus of kidney (principal); E78.5 Hyperlipidemia, unspecified; K21.9 Gastro-esophageal reflux disease without esophagitis; F32.9 Major depressive disorder, single episode, unspecified; J44.9 Chronic obstructive pulmonary disease, unspecified; I73.00 Raynaud's syndrome without gangrene; F17.218 Nicotine dependence, cigarettes, with other nicotine-induced disorders; Z88.2 Allergy status to sulfonamides; Z79.899 Other long term (current) drug therapy; Z88.8 Allergy status to other drugs, medicaments and biological substances
CPT/HCPCS: 52356; 74420; 82365; 88300; C1769; C1894; C2617; J0131; J0690; J1100; J2250; J2405; J3010; Q9961

== ENCOUNTER → 2020-11-28 | Outpatient (REF) | payer OTHER ==
[~2020-11-28] MED LIST changes: -LR 1,000 ML IV ONE; -ceFAZolin SOD 2 GM in IV 1 EA IV ONE
== END ==
LOC: M SMT 18:10
PROVIDERS: ATTEND Nurse Practitioner Family
DX: N20.0 Calculus of kidney (principal)

== ENCOUNTER → 2020-11-28 | Outpatient (CLI) | payer OTHER ==
--- NOTE | 2020-11-28 16:25 | REP ---
INDICATION: CALCULUS OF KIDNEY. COMPARISON: 01/04/2020 FINDINGS: Multiple bilateral calcifications are again seen superimposed over each nephric silhouette. The large oval-shaped 1 cm sized calcifications seen previously in the superior pole region of the left kidney is now seen in the left hemipelvis. Unchanged bilateral pelvic phleboliths are again noted. The intestinal gas pattern is nonspecific. There is no change in the osseous structures. IMPRESSION: Large left toro pelvic calcification as described above. <Electronically signed by Justin Vences > 11/28/20 [id number]
== END ==
LOC: M PLAIMG 15:10
PROVIDERS: ATTEND Nurse Practitioner Family
DX: N20.0 Calculus of kidney (principal)
CPT/HCPCS: 74018; 82365; G0463

== ENCOUNTER 2021-01-03 08:05 | Day surgery (SDC) | payer OTHER ==
[~2021-01-03] VITALS: Ht 157.5 cm; Wt 54.9 kg
[~2021-01-03 08:05] MED LIST changes: +CONRAY-60 60% 50ML VIAL (Q9961) As Ordered ONE; +LR 1,000 ML IV ONE; +ceFAZolin SOD 2 GM in IV 1 EA IV ONE
[2021-01-03] MEDS ORDERED: LIDOCAINE 2% 100MG/5ML SDV (FOR ANES.) As Ordered ONE (08:50)
[2021-01-03] MEDS ORDERED: ONDANSETRON 4MG/2ML VIAL As Ordered ONE (08:50)
[2021-01-03] MEDS ORDERED: dexameTHASONE 4 MG/ML 1ML VIAL (J1100 PER 1MG) As Ordered ONE (08:50)
[2021-01-03] MEDS ORDERED: fentaNYL 100 MCG/2 ML INJECTION (J3010) As Ordered ONE (08:50)
[2021-01-03] MEDS ORDERED: propofoL 200 MG/20 ML VIAL As Ordered ONE (08:50)
[2021-01-03] MEDS ORDERED: MIDAZOLAM INJ 2MG/2ML VIAL (J2250 PER 1MG) As Ordered ONE (08:50)
[2021-01-03] MEDS ORDERED: PHENYLephrine 500MCG 5ML (100MCG/ML) SYRINGE As Ordered ONE (10:51)
[2021-01-03] MEDS ORDERED: ePHEDrine SULFATE 25 MG/5 ML(5MG/ML) SYRINGE As Ordered ONE (11:04)
[2021-01-03] MEDS ORDERED: METOCLOPRAMIDE INJ 10MG/2ML VIAL (J2765 PER 1) IV PRN (12:20)
[2021-01-03] MEDS ORDERED: LR 1,000 ML IV SCH (12:20)
[2021-01-03] MEDS ORDERED: PERCOCET 5MG/325MG TAB PO PRN (12:20)
[2021-01-03] MEDS ORDERED: ONDANSETRON 4MG/2ML VIAL IV PRN (12:20)
[2021-01-03] MEDS ORDERED: fentaNYL 100 MCG/2 ML INJECTION (J3010) IV PRN (12:20)
--- NOTE | 2021-01-03 12:33 | RO ---
OPERATIVE NOTE DATE OF OPERATION: 01/03/2021 PREOPERATIVE DIAGNOSIS: Left kidney and ureteral stones. POSTOPERATIVE DIAGNOSIS: Left kidney and ureteral stones. PROCEDURE: Cystoscopy, left ureteroscopy with laser lithotripsy and basket extraction of stones, left retrograde pyelogram with intraoperative interpretation of images, left ureteral stent placement. SURGEON: Mayo Shaikh MD CONTROL ROOM TECHNICIAN: None. ANESTHESIA: General. OPERATIVE INDICATIONS: This is a 70-year-old female with a long history of kidney stones. She was recently found on CAT scan to have an obstructing approximately 1 cm distal left ureteral stone as well as several stones inside the left kidney. She was brought to the Operating Room today for treatment. DESCRIPTION OF PROCEDURE: The patient was brought to the operating room and general anesthesia was induced. Prophylactic antibiotics were infused. She was then placed in the dorsal lithotomy position and prepped and draped in usual sterile fashion. A guidewire was advanced up the left collecting system. I went up the left collecting system with a short semi-rigid ureteroscope and within the distal ureter an approximately 1 cm size stone was seen. The stone was fragmented into smaller pieces using 272 micron laser fiber and all the fragments were then removed using a basket. I then examined the more proximal ureter and no additional stones were seen. At this point, I then advanced a ureteral access sheath up the left collecting system. I went up the access sheath with a flexible ureteroscope and examined the left kidney thoroughly. There were several stones in different calyces in the kidney measuring up to 8 mm in size. All these stones were removed using a basket. Once done, only very tiny stone fragments remained. Of note; the patient had moderate nephrocalcinosis with lots of calcifications embedded in the renal papilla and several calyces. Once satisfied all the larger stones were gone, a retrograde pyelogram was performed and was notable for moderate left hydronephrosis with no extravasation. I then withdrew the ureteroscope along the access sheath and no remaining stones were seen inside the ureter. I then utilized a guidewire to advance a 6-Urdu x 22-32 cm JJ ureteral stent up the left collecting system. The wire was removed and there were adequate curls of the stent in left renal pelvis and in the bladder. The bladder was emptied of all fluids and this marked the conclusion of the procedure. The patient was taken out of the dorsal lithotomy position, awakened from anesthesia and transported to the recovery room in stable condition. ESTIMATED BLOOD LOSS: 5 mL. COMPLICATIONS: None. SPECIMEN: Kidney stones. PLAN: The patient will follow up in urology clinic in a few weeks for stent removal.
[2021-01-03 12:45] VITALS: BP 113/54
--- NOTE | 2021-01-03 13:36 | REP ---
INDICATION: LEFT STENT PLACEMENT. COMPARISON: 08/19/2020. TECHNIQUE: Two views abdomen and pelvis using a C-arm. FINDINGS: Contrast partially opacifies the left pelvocaliceal system. Left ureteral stent is visualized with the proximal end coiled in the left renal pelvis and the distal end in the urinary bladder. IMPRESSION: 20 seconds fluoroscopy time utilized. <Electronically signed by Luis Armando Liu > 01/03/21 [id number]
== END 2021-01-03 13:10 | disposition home or self-care (01) ==
LOC: M SDC 08:05
PROVIDERS: ATTEND Urology
DX: N13.2 Hydronephrosis with renal and ureteral calculous obstruction (principal); E78.49 Other hyperlipidemia; I73.00 Raynaud's syndrome without gangrene; K21.9 Gastro-esophageal reflux disease without esophagitis; D64.9 Anemia, unspecified; J44.9 Chronic obstructive pulmonary disease, unspecified; M13.80 Other specified arthritis, unspecified site; F17.200 Nicotine dependence, unspecified, uncomplicated; Z88.2 Allergy status to sulfonamides; Z88.8 Allergy status to other drugs, medicaments and biological substances; Z79.899 Other long term (current) drug therapy
CPT/HCPCS: 52356; 74420; 82365; 88300; C1769; C1894; C2617; J0690; J1100; J2250; J2370; J2405; J3010; Q9961

== ENCOUNTER → 2023-12-31 | Outpatient (CLI) | payer OTHER, MEDICARE ==
[~2023-12-31] MED LIST changes: -AMIT25TA17 PO; +AMIT25TA19 PO; +CEPH500C PO; -CILO100T PO; +CILO100T3 PO; -CONRAY-60 60% 50ML VIAL (Q9961) As Ordered ONE; +GLYB2.5T7 PO; +INDA2.5T2 PO; -INDA25TAB PO; +LEVO1TAB38 PO; -LEVO250T12 PO; -LR 1,000 ML IV ONE; -OXYB5TAB10 PO; +OXYB5TAB14 PO; +OXYC1TAB23 PO; -ceFAZolin SOD 2 GM in IV 1 EA IV ONE
== END ==
LOC: M PLAIMG 15:32
PROVIDERS: ATTEND Urology
DX: N20.0 Calculus of kidney (principal)

== ENCOUNTER 2024-01-19 10:43 | Day surgery (SDC) | payer OTHER, MEDICARE ==
[~2024-01-19] VITALS: Ht 157.5 cm; Wt 58.7 kg
[~2024-01-19 10:43] MED LIST changes: -CEPH500C PO; -OXYC1TAB23 PO; +ceFAZolin SOD 2 GM in IV 1 EA IV ONE
[2024-01-19] MEDS ORDERED: MIDAZOLAM INJ 2MG/2ML VIAL As Ordered ONE (12:35)
[2024-01-19] MEDS ORDERED: fentaNYL 100 MCG/2 ML INJECTION As Ordered ONE (12:36)
[2024-01-19] MEDS ORDERED: propofoL 200 MG/20 ML VIAL As Ordered ONE (12:38)
[2024-01-19] MEDS ORDERED: LIDOCAINE 2% 100MG/5ML SDV (FOR ANES.) As Ordered ONE (12:38)
[2024-01-19] MEDS ORDERED: ONDANSETRON 4MG 2ML VIAL As Ordered ONE (12:38)
[2024-01-19] MEDS ORDERED: ISOVUE-300 61% 100ML VIAL As Ordered ONE (12:56)
[2024-01-19] MEDS ORDERED: fentaNYL 100 MCG/2 ML INJECTION IV PRN (14:40)
[2024-01-19] MEDS ORDERED: MORPHINE 2 MG/ML 1ML VIAL IV PRN (14:40)
[2024-01-19] MEDS ORDERED: oxyCODONE 5MG TAB PO PRN (14:40)
[2024-01-19] MEDS ORDERED: ONDANSETRON 4MG 2ML VIAL IV PRN (14:40)
[2024-01-19] MEDS ORDERED: CEPH500C PO (16:01)
[2024-01-19] MEDS ORDERED: OXYC1TAB23 PO (16:01)
[2024-01-19] MEDS ORDERED: OXYB5TAB14 PO (16:01)
[2024-01-19 16:10] VITALS: BP 120/61; TEMP 96.9; O2SAT 95
== END 2024-01-19 16:11 | disposition home or self-care (01) ==
LOC: M SDC 10:43
PROVIDERS: ATTEND Urology
DX: N13.2 Hydronephrosis with renal and ureteral calculous obstruction (principal); E11.9 Type 2 diabetes mellitus without complications; J44.9 Chronic obstructive pulmonary disease, unspecified; Z87.442 Personal history of urinary calculi; E78.00 Pure hypercholesterolemia, unspecified; K59.09 Other constipation; F17.210 Nicotine dependence, cigarettes, uncomplicated; Z79.899 Other long term (current) drug therapy; Z79.84 Long term (current) use of oral hypoglycemic drugs; I73.00 Raynaud's syndrome without gangrene; K21.9 Gastro-esophageal reflux disease without esophagitis; Z90.49 Acquired absence of other specified parts of digestive tract; Z88.2 Allergy status to sulfonamides; Z88.8 Allergy status to other drugs, medicaments and biological substances
CPT/HCPCS: 52356; 76000; 82365; C1769; C1894; C2617; J1100; J2250; J2405; J3010

== ENCOUNTER → 2024-08-14 | Outpatient (CLI) | payer MEDICARE, OTHER ==
[~2024-08-14] MED LIST changes: +CEPH500C PO; +OXYC1TAB23 PO; -ceFAZolin SOD 2 GM in IV 1 EA IV ONE
== END ==
LOC: M RAD 12:22
PROVIDERS: ATTEND Urology
DX: N20.0 Calculus of kidney (principal)